=== PATIENT | female | born 2000 | race Hispanic/Latino ===

== ENCOUNTER 2025-03-10 20:55 | Emergency (ER) | payer OTHER ==
--- OUTSIDE RECORDS SUMMARY | 2025-03-10 21:01 | XMS REPORT | Continuity of Care Document ---
Author Name Unknown Address [address] [facility] [place] [address] [facility] Address [address] [facility] [address] [place] [address] Care Team Providers Care Doper Operator Name Role Phone Ratna Bennett Primary Care Physician [phone] ANGELINA OSWALD Attending Clinician Unavailable BRIAN MICHELE Attending Clinician Unavailab Brian Wilder NP Attending Clinician [phone] Unknown, Attending Attending Clinician Unavailab PARKER Jang Attending Clinician Unavailable Parker Yeh Attending Clinician Unknown, Attending Attending Clinician Unavailab Shiv Akins MD Attending Clinician SHIV FRIAS Attending Clinician Unavail able Doctor Unassigned, Ben Avon Attending Clinician Lito Bishop DO Attending Clinician Patricia Barrientos Attending Clinician + PATRICIA BOOTHE Attending Clinician Unavail able Brian Becerril Attending Clinician [phone] BRIAN KIM Attending Clinician Unavailable Payers Payer Name Policy Type Policy Number Effective Date Expirati on Date Source CIGAMILCAR II [id number] 2024 00:00:00 FORMERLY [facility] [id number] 2024 00:00:00 [facility] [id number] 2015 00:00:00 Problems Condition Name Condition Details Condition Category Status Onset Date Resolution Date Last Treatment Date Treating Clinician Comments Source Nexplanon insertion Nexplanon insertion Disease Active 10-15 00:00: 00 [facility] Nexplanon removal Nexplanon removal Disease Active 10-15 00:00: 00 [facility] Well woman exam Well woman exam Disease Active 10-01 00:00: 00 [facility] Morbid obesity, unspecifie d obesity type Morbid obesity, unspecifie d obesity type Disease Active 10-01 00:00: 00 [facility] Tobacco use disorder Tobacco use disorder Disease Active 10-01 00:00: 00 [facility] Nexplanon in place Nexplanon in place Disease Active 10-01 00:00: 00 [facility] Acanthosis nigricans, acquired Acanthosis nigricans, acquired Disease Active 08-16 00:00: 00 [facility] BMI (body mass index), pediatric, 95-99% for age BMI (body mass index), pediatric, 95-99% for age Disease Active 08-16 00:00: 00 [facility] Allergies, Adverse Reactions, Alerts Allergy Name Allergy Type Status Severity Reaction(s) Onset Date Inactive Date Treating Clinician Comments Source NO KNOWN ALLERGIE S Drug Class Active [facility] Social History Social Habit Start Date Stop Date Quantity Comments Source [facility] Alcoholic beverage intake 2024-10-23 00:00:00 2024-10-23 00:00:00 0 /d [facility] Tobacco use and exposure 2023-12-14 00:00:00 2023-12-14 00:00:00 Smokeless tobacco non-user [facility] Exposure to SARS-CoV-2 (event) 2022-09-28 00:00:00 2022-10-08 11:23:00 Not sure [facility] History of Social function 2022-10-08 00:00:00 2022-10-08 00:00:00 [facility] Alcohol intake 2022-10-08 00:00:00 2022-10-08 00:00:00 0 /d [facility] Tobacco Comment 2022-10-08 00:00:00 2022-10-08 00:00:00 e-cig , < 5 min / day. [facility] History of tobacco use 2016-08-28 00:00:00 2016-08-28 00:00:00 Cigarette Smoker [facility] Sex assigned at 2000 00:00:00 2000 00:00:00 [facility] Smoking Status Start Date Stop Date Source Smokes tobacco daily 2023-12-14 00:00:00 [facility] Medications Ordered Medication Name Filled Medication Name Start Date Stop Date Current Medication? Ordering Clinician Indication Dosage Frequency Signature (SIG) Comments Components Source polymyxin B sulf-trimet hoprim 10,000 unit- 1 mg/mL ophthalmic drops 10-23 00:00: 00 10-31 04:59 :00 No [id number] 1[drp] Place 1 Drop in left eye every 4 (four) hours for 7 days. [facility] metronidazo le 500 mg tablet 05 00:00: 00 Yes 1mg Jermaine F Ron albuterol 90 mcg/actuati on inhaler 12-13 00:00: 00 10-23 00:00 :00 No [id number] 2{puff} Inhale 2 Puffs every 6 (six) hours as needed for Wheezing or Shortness of Breath. [facility] nirmatrelvi r-ritonavir (PAXLOVID) 150-100 mg tablet 12-13 00:00: 00 10-23 00:00 :00 No [id number] 2{tbl} Take 2 tablets by mouth in the morning and 2 tablets in the evening. [facility] metroNIDAZO LE 500 mg tablet -16 00:00: 00 10-18 04:59 :00 No [id number] 500mg Take 1 tablet by mouth every 12 (twelve) hours for 7 days. [facility] ibuprofen 800 mg tablet 10-08 00:00: 00 10-23 04:59 :00 No [id number] 800mg Take 1 tablet by mouth in the morning and 1 tablet in the evening. Take with meals. Do all this for 14 days. [facility]OGE[facility]RE L (NEXPLANON SDRM) 08-15 22:41: 35 08-15 00:00 :00 No by Subdermal route. [facility] ETONOGESTRE L (NEXPLANON SDRM) 2019-07 21:31: 41 Yes by Subdermal route. [facility] ETONOGESTRE L (NEXPLANON SDRM) 12-17 19:07: 18 Yes by Subdermal route. [facility] No known medications No Un concepcion [facility] No known medications No Un concepcion [facility] Immunizations Ordered Immunization Name Filled Immunization Name Date Status Comments Source Hep B, Adol or Pedi Dosage 2023-12-14 13:40:00 Completed [facility] HEPATITIS A 2023-12-14 13:40:00 Completed [facility] Varicella (varivax)(chicken pox) 2023-12-14 13:40:00 Completed [facility] Meningococcal Polysaccharide (groups A, C, Y and W-135) conjugate vaccine (MCV4P) 2023-12-14 13:40:00 Completed [facility] TDAP 2023-12-14 13:40:00 Completed [facility] Meningococcal Oligosaccharide (groups A, C, Y and W-135) conjugate vaccine (MCV4O) 2023-12-14 13:40:00 Completed [facility] HPV 2023-12-14 13:40:00 Completed [facility] HPV9 2023-12-14 13:40:00 Completed [facility] HPV9 2015-08-16 00:00:00 Completed [facility] HPV9 2015-08-16 00:00:00 Completed [facility] HPV9 2015-08-16 00:00:00 Completed [facility] HPV9 2015-08-16 00:00:00 Completed [facility] HPV9 2015-08-16 00:00:00 Completed [facility] HPV9 2015-08-16 00:00:00 Completed [facility] HPV9 2015-08-16 00:00:00 Completed [facility] HPV9 2015-08-16 00:00:00 Completed [facility] HPV9 2015-08-16 00:00:00 Completed HPV9 2015-08-16 00:00:00 Completed [facility] HPV9 2015-04-06 00:00:00 Completed [facility] HPV9 2015-04-06 00:00:00 Completed [facility] HPV9 2015-04-06 00:00:00 Completed [facility] HPV9 2015-04-06 00:00:00 Completed [facility] HPV9 2015-04-06 00:00:00 Completed [facility] HPV9 2015-04-06 00:00:00 Completed [facility] HPV9 2015-04-06 00:00:00 Completed [facility] HPV9 2015-04-06 00:00:00 Completed [facility] HPV9 2015-04-06 00:00:00 Completed [facility] HPV9 2015-04-06 00:00:00 Completed [facility] Meningococcal Oligosaccharide (groups A, C, Y and W-135) conjugate vaccine (MCV4O) 2014-11-02 00:00:00 Completed [facility] HPV 2014-11-02 00:00:00 Completed [facility] Meningococcal Oligosaccharide (groups A, C, Y and W-135) conjugate vaccine (MCV4O) 2014-11-02 00:00:00 Completed [facility] HPV 2014-11-02 00:00:00 Completed [facility] Meningococcal Oligosaccharide (groups A, C, Y and W-135) conjugate vaccine (MCV4O) 2014-11-02 00:00:00 Completed [facility] HPV 2014-11-02 00:00:00 Completed [facility] Meningococcal Oligosaccharide (groups A, C, Y and W-135) conjugate vaccine (MCV4O) 2014-11-02 00:00:00 Completed [facility] HPV 2014-11-02 00:00:00 Completed [facility] Meningococcal Oligosaccharide (groups A, C, Y and W-135) conjugate vaccine (MCV4O) 2014-11-02 00:00:00 Completed [facility] HPV 2014-11-02 00:00:00 Completed [facility] Meningococcal Oligosaccharide (groups A, C, Y and W-135) conjugate vaccine (MCV4O) 2014-11-02 00:00:00 Completed [facility] HPV 2014-11-02 00:00:00 Completed [facility] Meningococcal Oligosaccharide (groups A, C, Y and W-135) conjugate vaccine (MCV4O) 2014-11-02 00:00:00 Completed [facility] Meningococcal Oligosaccharide (groups A, C, Y and W-135) conjugate vaccine (MCV4O) 2014-11-02 00:00:00 Completed [facility] HPV 2014-11-02 00:00:00 Completed [facility] HPV 2014-11-02 00:00:00 Completed [facility] Meningococcal Oligosaccharide (groups A, C, Y and W-135) conjugate vaccine (MCV4O) 2014-11-02 00:00:00 Completed [facility] HPV 2014-11-02 00:00:00 Completed Meningococcal Oligosaccharide (groups A, C, Y and W-135) conjugate vaccine (MCV4O) 2014-11-02 00:00:00 Completed [facility] HPV 2014-11-02 00:00:00 Completed [facility] Meningococcal Polysaccharide (groups A, C, Y and W-135) conjugate vaccine (MCV4P) 2010-12-20 00:00:00 Completed [facility] TDAP 2010-12-20 00:00:00 Completed [facility] Meningococcal Polysaccharide (groups A, C, Y and W-135) conjugate vaccine (MCV4P) 2010-12-20 00:00:00 Completed [facility] TDAP 2010-12-20 00:00:00 Completed [facility] Meningococcal Polysaccharide (groups A, C, Y and W-135) conjugate vaccine (MCV4P) 2010-12-20 00:00:00 Completed [facility] TDAP 2010-12-20 00:00:00 Completed [facility] Meningococcal Polysaccharide (groups A, C, Y and W-135) conjugate vaccine (MCV4P) 2010-12-20 00:00:00 Completed [facility] TDAP 2010-12-20 00:00:00 Completed [facility] Meningococcal Polysaccharide (groups A, C, Y and W-135) conjugate vaccine (MCV4P) 2010-12-20 00:00:00 Completed [facility] TDAP 2010-12-20 00:00:00 Completed [facility] Meningococcal Polysaccharide (groups A, C, Y and W-135) conjugate vaccine (MCV4P) 2010-12-20 00:00:00 Completed [facility] TDAP 2010-12-20 00:00:00 Completed [facility] Meningococcal Polysaccharide (groups A, C, Y and W-135) conjugate vaccine (MCV4P) 2010-12-20 00:00:00 Completed [facility] TDAP 2010-12-20 00:00:00 Completed [facility] Meningococcal Polysaccharide (groups A, C, Y and W-135) conjugate vaccine (MCV4P) 2010-12-20 00:00:00 Completed [facility] TDAP 2010-12-20 00:00:00 Completed [facility] Meningococcal Polysaccharide (groups A, C, Y and W-135) conjugate vaccine (MCV4P) 2010-12-20 00:00:00 Completed [facility] TDAP 2010-12-20 00:00:00 Completed Meningococcal Polysaccharide (groups A, C, Y and W-135) conjugate vaccine (MCV4P) 2010-12-20 00:00:00 Completed [facility] TDAP 2010-12-20 00:00:00 Completed [facility] HEPATITIS A 2008-08-10 00:00:00 Completed [facility] Varicella (varivax)(chicken pox) 2008-08-10 00:00:00 Completed [facility] HEPATITIS A 2008-08-10 00:00:00 Completed [facility] Varicella (varivax)(chicken pox) 2008-08-10 00:00:00 Completed [facility] HEPATITIS A 2008-08-10 00:00:00 Completed [facility] Varicella (varivax)(chicken pox) 2008-08-10 00:00:00 Completed [facility] HEPATITIS A 2008-08-10 00:00:00 Completed [facility] Varicella (varivax)(chicken pox) 2008-08-10 00:00:00 Completed [facility] HEPATITIS A 2008-08-10 00:00:00 Completed [facility] Varicella (varivax)(chicken pox) 2008-08-10 00:00:00 Completed [facility] HEPATITIS A 2008-08-10 00:00:00 Completed [facility] HEPATITIS A 2008-08-10 00:00:00 Completed [facility] Varicella (varivax)(chicken pox) 2008-08-10 00:00:00 Completed [facility] Varicella (varivax)(chicken pox) 2008-08-10 00:00:00 Completed [facility] HEPATITIS A 2008-08-10 00:00:00 Completed [facility] Varicella (varivax)(chicken pox) 2008-08-10 00:00:00 Completed [facility] HEPATITIS A 2008-08-10 00:00:00 Completed Varicella (varivax)(chicken pox) 2008-08-10 00:00:00 Completed HEPATITIS A 2008-08-10 00:00:00 Completed [facility] Varicella (varivax)(chicken pox) 2008-08-10 00:00:00 Completed [facility] HEPATITIS A 2006-12-08 00:00:00 Completed [facility] HEPATITIS A 2006-12-08 00:00:00 Completed [facility] HEPATITIS A 2006-12-08 00:00:00 Completed [facility] HEPATITIS A 2006-12-08 00:00:00 Completed [facility] HEPATITIS A 2006-12-08 00:00:00 Completed [facility] HEPATITIS A 2006-12-08 00:00:00 Completed [facility] HEPATITIS A 2006-12-08 00:00:00 Completed [facility] HEPATITIS A 2006-12-08 00:00:00 Completed [facility] HEPATITIS A 2006-12-08 00:00:00 Completed HEPATITIS A 2006-12-08 00:00:00 Completed [facility] Hep B, Adol or Pedi Dosage 2003-05-16 00:00:00 Completed [facility] Hep B, Adol or Pedi Dosage 2003-05-16 00:00:00 Completed [facility] Hep B, Adol or Pedi Dosage 2003-05-16 00:00:00 Completed [facility] Hep B, Adol or Pedi Dosage 2003-05-16 00:00:00 Completed [facility] Hep B, Adol or Pedi Dosage 2003-05-16 00:00:00 Completed [facility] Hep B, Adol or Pedi Dosage 2003-05-16 00:00:00 Completed [facility] Hep B, Adol or Pedi Dosage 2003-03-10 00:00:00 Completed [facility] Hep B, Adol or Pedi Dosage 2003-03-10 00:00:00 Completed [facility] Hep B, Adol or Pedi Dosage 2003-03-10 00:00:00 Completed [facility] Hep B, Adol or Pedi Dosage 2003-03-10 00:00:00 Completed [facility] Hep B, Adol or Pedi Dosage 2003-03-10 00:00:00 Completed [facility] Hep B, Adol or Pedi Dosage 2003-03-10 00:00:00 Completed [facility] DTAP 2003-01-20 00:00:00 Completed [facility] MMR 2003-01-20 00:00:00 Completed [facility] Polio (IPV/OPV) 2003-01-20 00:00:00 Completed [facility] DTAP 2003-01-20 00:00:00 Completed [facility] MMR 2003-01-20 00:00:00 Completed [facility] Polio (IPV/OPV) 2003-01-20 00:00:00 Completed [facility] DTAP 2003-01-20 00:00:00 Completed [facility] MMR 2003-01-20 00:00:00 Completed [facility] Polio (IPV/OPV) 2003-01-20 00:00:00 Completed [facility] DTAP 2003-01-20 00:00:00 Completed [facility] MMR 2003-01-20 00:00:00 Completed [facility] Polio (IPV/OPV) 2003-01-20 00:00:00 Completed [facility] DTAP 2003-01-20 00:00:00 Completed [facility] MMR 2003-01-20 00:00:00 Completed [facility] Polio (IPV/OPV) 2003-01-20 00:00:00 Completed [facility] DTAP 2003-01-20 00:00:00 Completed [facility] MMR 2003-01-20 00:00:00 Completed [facility] Polio (IPV/OPV) 2003-01-20 00:00:00 Completed [facility] DTAP 1999-10-03 00:00:00 Completed [facility] HIB 4 Dose Schedule 1999-10-03 00:00:00 Completed [facility] DTAP 1999-10-03 00:00:00 Completed [facility] HIB 4 Dose Schedule 1999-10-03 00:00:00 Completed [facility] DTAP 1999-10-03 00:00:00 Completed [facility] HIB 4 Dose Schedule 1999-10-03 00:00:00 Completed [facility] DTAP 1999-10-03 00:00:00 Completed [facility] HIB 4 Dose Schedule 1999-10-03 00:00:00 Completed [facility] DTAP 1999-10-03 00:00:00 Completed [facility] HIB 4 Dose Schedule 1999-10-03 00:00:00 Completed [facility] DTAP 1999-10-03 00:00:00 Completed [facility] HIB 4 Dose Schedule 1999-10-03 00:00:00 Completed [facility] Varicella (varivax)(chicken pox) 1999-06-15 00:00:00 Completed [facility] HIB 4 Dose Schedule 1999-06-15 00:00:00 Completed [facility] MMR 1999-06-15 00:00:00 Completed [facility] HIB 4 Dose Schedule 1999-06-15 00:00:00 Completed [facility] MMR 1999-06-15 00:00:00 Completed [facility] Varicella (varivax)(chicken pox) 1999-06-15 00:00:00 Completed [facility] HIB 4 Dose Schedule 1999-06-15 00:00:00 Completed [facility] HIB 4 Dose Schedule 1999-06-15 00:00:00 Completed [facility] MMR 1999-06-15 00:00:00 Completed [facility] Varicella (varivax)(chicken pox) 1999-06-15 00:00:00 Completed [facility] MMR 1999-06-15 00:00:00 Completed [facility] HIB 4 Dose Schedule 1999-06-15 00:00:00 Completed [facility] MMR 1999-06-15 00:00:00 Completed [facility] Varicella (varivax)(chicken pox) 1999-06-15 00:00:00 Completed [facility] Varicella (varivax)(chicken pox) 1999-06-15 00:00:00 Completed [facility] HIB 4 Dose Schedule 1999-06-15 00:00:00 Completed [facility] MMR 1999-06-15 00:00:00 Completed [facility] Varicella (varivax)(chicken pox) 1999-06-15 00:00:00 Completed [facility] DTAP 1999-01-05 00:00:00 Completed [facility] Hep B, Adol or Pedi Dosage 1999-01-05 00:00:00 Completed [facility] HIB 4 Dose Schedule 1999-01-05 00:00:00 Completed [facility] Polio (IPV/OPV) 1999-01-05 00:00:00 Completed [facility] DTAP 1999-01-05 00:00:00 Completed [facility] Hep B, Adol or Pedi Dosage 1999-01-05 00:00:00 Completed [facility] HIB 4 Dose Schedule 1999-01-05 00:00:00 Completed [facility] Polio (IPV/OPV) 1999-01-05 00:00:00 Completed [facility] DTAP 1999-01-05 00:00:00 Completed [facility] Hep B, Adol or Pedi Dosage 1999-01-05 00:00:00 Completed [facility] DTAP 1999-01-05 00:00:00 Completed [facility] Hep B, Adol or Pedi Dosage 1999-01-05 00:00:00 Completed [facility] HIB 4 Dose Schedule 1999-01-05 00:00:00 Completed [facility] HIB 4 Dose Schedule 1999-01-05 00:00:00 Completed [facility] Polio (IPV/OPV) 1999-01-05 00:00:00 Completed [facility] DTAP 1999-01-05 00:00:00 Completed [facility] Hep B, Adol or Pedi Dosage 1999-01-05 00:00:00 Completed [facility] HIB 4 Dose Schedule 1999-01-05 00:00:00 Completed [facility] Polio (IPV/OPV) 1999-01-05 00:00:00 Completed [facility] Polio (IPV/OPV) 1999-01-05 00:00:00 Completed [facility] DTAP 1999-01-05 00:00:00 Completed [facility] Hep B, Adol or Pedi Dosage 1999-01-05 00:00:00 Completed [facility] HIB 4 Dose Schedule 1999-01-05 00:00:00 Completed [facility] Polio (IPV/OPV) 1999-01-05 00:00:00 Completed [facility] DTAP 1998 00:00:00 Completed [facility] HIB 4 Dose Schedule 1998 00:00:00 Completed [facility] Polio (IPV/OPV) 1998 00:00:00 Completed [facility] DTAP 1998 00:00:00 Completed [facility] HIB 4 Dose Schedule 1998 00:00:00 Completed [facility] Polio (IPV/OPV) 1998 00:00:00 Completed [facility] DTAP 1998 00:00:00 Completed [facility] DTAP 1998 00:00:00 Completed [facility] HIB 4 Dose Schedule 1998 00:00:00 Completed [facility] Polio (IPV/OPV) 1998 00:00:00 Completed [facility] HIB 4 Dose Schedule 1998 00:00:00 Completed [facility] Polio (IPV/OPV) 1998 00:00:00 Completed [facility] DTAP 1998 00:00:00 Completed [facility] HIB 4 Dose Schedule 1998 00:00:00 Completed [facility] Polio (IPV/OPV) 1998 00:00:00 Completed [facility] DTAP 1998 00:00:00 Completed [facility] HIB 4 Dose Schedule 1998 00:00:00 Completed [facility] Polio (IPV/OPV) 1998 00:00:00 Completed [facility] Hep B, Adol or Pedi Dosage 1998 00:00:00 Completed [facility] Hep B, Adol or Pedi Dosage 1998 00:00:00 Completed [facility] Hep B, Adol or Pedi Dosage 1998 00:00:00 Completed [facility] Hep B, Adol or Pedi Dosage 1998 00:00:00 Completed [facility] Hep B, Adol or Pedi Dosage 1998 00:00:00 Completed [facility] Hep B, Adol or Pedi Dosage 1998 00:00:00 Completed [facility] Hep B, Adol or Pedi Dosage 1998 00:00:00 Completed [facility] Hep B, Adol or Pedi Dosage 1998 00:00:00 [facility]pleted [facility] [facility] Hep B, Adol or Pedi Dosage 1998 00:00:00 Completed [facility] Hep B, Adol or Pedi Dosage 1998 00:00:00 Completed [facility] Vital Signs Vital Name Observation Time Observation Value Comments S jermaine Systolic blood pressure 2024-10-23 14:36:00 120 mm[Hg] [facility] Diastolic blood pressure 2024-10-23 14:36:00 79 mm[Hg] [facility] Heart rate 2024-10-23 14:36:00 116 /min Neela [facility] Body temperature 2024-10-23 14:36:00 36.67 Bonnie [facility] Respiratory rate 2024-10-23 14:36:00 24 /min [facility] Body height 2024-10-23 14:36:00 144.8 cm [facility] Body weight 2024-10-23 14:36:00 101.833 kg [facility] BMI 2024-10-23 14:36:00 48.58 kg/m2 [facility] Oxygen saturation in Arterial blood by Pulse oximetry 2024-10-23 14:36:00 98 /min [facility] Systolic blood pressure 2023-12-14 18:54:00 117 mm[Hg] [facility] Diastolic blood pressure 2023-12-14 18:54:00 81 mm[Hg] [facility] Heart rate 2023-12-14 18:54:00 104 /min Unive [facility] Body temperature 2023-12-14 18:54:00 37.61 Bonnie [facility] Respiratory rate 2023-12-14 18:54:00 14 /min [facility] Body height 2023-12-14 18:54:00 144.8 cm [facility] Body weight 2023-12-14 18:54:00 98.294 kg [facility] BMI 2023-12-14 18:54:00 46.89 kg/m2 [facility] Oxygen saturation in Arterial blood by Pulse oximetry 2023-12-14 18:54:00 97 /min [facility] Systolic blood pressure 2022-10-08 16:24:00 113 mm[Hg] [facility] Diastolic blood pressure 2022-10-08 16:24:00 80 mm[Hg] [facility] Heart rate 2022-10-08 16:24:00 98 /min [facility] Body temperature 2022-10-08 16:24:00 36.5 Bonnie [facility] Respiratory rate 2022-10-08 16:24:00 16 /min [facility] Body height 2022-10-08 16:24:00 144.8 cm [facility] Body weight 2022-10-08 16:24:00 96.163 kg [facility] BMI 2022-10-08 16:24:00 45.88 kg/m2 [facility] Oxygen saturation in Arterial blood by Pulse oximetry 2022-10-08 16:24:00 99 /min [facility] Systolic blood pressure 2020-08-15 21:31:00 115 mm[Hg] [facility] Diastolic blood pressure 2020-08-15 21:31:00 72 mm[Hg] [facility] Heart rate 2020-08-15 21:31:00 89 /min [facility] Body temperature 2020-08-15 21:31:00 36.94 Bonnie [facility] Respiratory rate 2020-08-15 21:31:00 18 /min [facility] Body height 2020-08-15 21:31:00 144.8 cm [facility] Body weight 2020-08-15 21:31:00 89.721 kg [facility] BMI 2020-08-15 21:31:00 42.80 kg/m2 [facility] Systolic blood pressure 2020-07-05 21:30:00 117 mm[Hg] [facility] Diastolic blood pressure 2020-07-05 21:30:00 77 mm[Hg] [facility] Heart rate 2020-07-05 21:30:00 83 /min [facility] Body temperature 2020-07-05 21:30:00 36.67 Bonnie [facility] Respiratory rate 2020-07-05 21:30:00 18 /min [facility] Body height 2020-07-05 21:30:00 144.8 cm [facility] Body weight 2020-07-05 21:30:00 90.436 kg [facility] BMI 2020-07-05 21:30:00 43.14 kg/m2 [facility] BP Systolic 2024-12-01 14:03:00 127 mm[Hg] Kobe Velasquez BP Diastolic 2024-12-01 14:03:00 81 mm[Hg] Ulises Velasquez Weight Measured 2024-12-01 14:03:00 225.80 pounds Jermaine Velasquez Height Measured 2024-12-01 14:03:00 60.00 inches Jermaine F Ron Body Temperature 2024-12-01 14:03:00 98.00 degrees Jermaine F Ron Heart Rate 2024-12-01 14:03:00 117.00 /min Step hen F Ron Respiratory Rate 2024-12-01 14:03:00 20.00 /min Jermaine F Ron BP Systolic 2024-09-04 11:47:00 127 mm[Hg] Step hen F Ron BP Diastolic 2024-09-04 11:47:00 84 mm[Hg] Ulises phen F Ron Weight Measured 2024-09-04 11:47:00 226.60 pounds Jermaine F Ron Height Measured 2024-09-04 11:47:00 60.00 inches Jermaine F Ron Body Temperature 2024-09-04 11:47:00 98.70 degrees Jermaine F Ron Heart Rate 2024-09-04 11:47:00 102.00 /min Step hen F Ron Respiratory Rate 2024-09-04 11:47:00 Jermaine F Ron Respiratory Rate 2024-09-01 09:36:00 18.00 /min Jermaine F Ron BP Systolic 2024-09-01 09:36:00 120 mm[Hg] Step hen F Ron BP Diastolic 2024-09-01 09:36:00 81 mm[Hg] Ulises phen F Ron Weight Measured 2024-09-01 09:36:00 225.00 pounds Jermaine F Ron Height Measured 2024-09-01 09:36:00 60.00 inches Jermaine F Ron Body Temperature 2024-09-01 09:36:00 98.60 degrees Jermaine F Ron Heart Rate 2024-09-01 09:36:00 87.00 /min Virginie en F Ron BP Systolic 2024-08-27 16:36:00 115 mm[Hg] Step hen F Ron BP Diastolic 2024-08-27 16:36:00 74 mm[Hg] Ulises phen F Ron Weight Measured 2024-08-27 16:36:00 228.00 pounds Jermaine F Ron Height Measured 2024-08-27 16:36:00 60.00 inches Jermaine F Ron Body Temperature 2024-08-27 16:36:00 98.50 degrees Jermaine F Ron Heart Rate 2024-08-27 16:36:00 100.00 /min Step hen F Ron Respiratory Rate 2024-08-27 16:36:00 16.00 /min Jermaine Velasquez BP Systolic 2024-08-13 17:07:00 110 mm[Hg] Step zbigniew Velasquez BP Diastolic 2024-08-13 17:07:00 73 mm[Hg] Ulises Velasquez Weight Measured 2024-08-13 17:07:00 Jermaine Velasquez Height Measured 2024-08-13 17:07:00 60.00 inches Jermaine Velasquez Body Temperature 2024-08-13 17:07:00 97.90 degrees Jermaine Velasquez Heart Rate 2024-08-13 17:07:00 66.00 /min Virginie en Saturnino Velasquez Respiratory Rate 2024-08-13 17:07:00 Jermaine Velasquez Procedures Procedure Date / Time Performed Performing Clinicia n Source POCT SARS-COV-2 ANTIGEN (BINAX NOW) 2023-12-14 19:00:00 Amelie Wilkinson [facility] ASSIGNMENT OF BENEFITS 2022-10-08 16:13:01 Doctimothy r Unassigned, [place] [facility] POCT TEST 2020-08-15 21:33:00 Timothy Boothe [facility] DISCLOSURE AND CONSENT, MEDICAL AND SURGICAL PROCEDURES 2020-08-15 06:01:00 Doctor Unassigned, [place] [facility] ASSIGNMENT OF BENEFITS 2020-07-05 20:43:59 Clarisse r Unassigned, [place] [facility] Encounters Start Date/Time End Date/Time Encounter Type Admission Type Attending [facility] Care Facility Care Department Encounter ID Source 2024-12-02 11:00:00 2024-12-02 11:00:00 Outpatient ANGELINA BARBA [facility] [id number] [facility] 2024-12-01 13:59:50 2024-12-01 13:59:50 Outpatient [facility] [id number] Jermaine Velasquez 2024-12-01 00:00:00 2024-12-01 00:00:00 Outpatient Visit [facility] [id number] Jermaine Velasquez 2024-10-23 09:30:00 2024-10-23 10:02:07 Outpatient R BRIAN MICHELE [facility] [id number] [facility] 2024-10-23 09:30:00 2024-10-23 10:02:07 Urgent Care Brian Michele Brandie Unknown, Attending [facility] 1.840.114 350.1.13.10 4.2.7.2.686 [id number] [facility] 2024-09-13 12:55:09 2024-09-13 12:55:09 Outpatient [facility] [id number] Jermaine Matamoros Ron 2024-09-04 11:36:57 2024-09-04 11:36:57 Outpatient [facility] [id number] Jermaine Matamoros Ron 2024-09-04 00:00:00 2024-09-04 00:00:00 Outpatient Visit [facility] [id number] Jermaine Matamoros Ron 2024-09-01 10:31:44 2024-09-01 10:31:44 Outpatient [facility] 5 Jermaine Matamoros Armstrong 2024-08-27 00:00:00 2024-08-27 00:00:00 Outpatient Visit [facility] [id number] Jeramine Velasquez 2023-12-14 13:40:00 2023-12-14 14:11:34 Outpatient R PARKER VILLANUEVA [facility] [id number] [facility] 2023-12-14 13:40:00 2023-12-14 14:11:34 Urgent Care Parker Villanueva Unknown, [facility] 1.840.114 350.1.13.10 4.2.7.2.686 [id number] [facility] 2022-10-10 00:00:00 2022-10-10 00:00:00 Telephone [facility] 1.2.840.114 350.1.13.10 4.2.7.2.686 [id number] [facility] 2022-10-08 11:00:00 2022-10-08 11:51:12 Outpatient R SHIV FRIAS [facility] [id number] [facility] 2022-10-08 11:00:00 2022-10-08 11:15:00 Office Visit Shiv Frias [facility] 1.2840.114 350.1.13.10 4.2.7.2.686 [id number] [facility] 2022-10-08 00:00:00 2022-10-08 00:00:00 Orders Only Doctor Unassigned, [place] [facility] 1.840.114 350.1.13.10 4.2.7.2.686 [id number] [facility] 2020-10-17 00:00:00 2020-10-17 00:00:00 Patient Outreach Lito Mccartney [facility] 1.2.114 350.1.13.10 4.2.7.2.686 [id number] [facility] 2020-08-15 14:42:15 2020-08-15 16:02:35 Office Visit Patricia Boothe [facility] 1.2.114 350.1.13.10 4.2.7.2.686 [id number] [facility] 2020-08-15 14:45:00 2020-08-15 14:45:00 Outpatient R PATRICIA BOOTHE [facility] [id number] [facility] 2020-08-15 00:00:00 2020-08-15 00:00:00 Orders Only Doctor Unassigned, [place] [facility] 1.20.114 350.1.13.10 4.2.7.2.686 [id number] [facility] 2020-07-05 14:47:30 2020-07-05 16:25:16 Office Visit Brian Kim [facility] 1.2.840.114 350.1.13.10 4.2.7.2.686 [id number] [facility] 2020-07-05 14:45:00 2020-07-05 14:45:00 Outpatient R BRIAN KIM [facility] [id number] [facility] 2020-07-05 00:00:00 2020-07-05 00:00:00 Orders Only Doctor Unassigned, [place] [facility] 1.2.840.114 350.1.13.10 4.2.7.2.686 [id number] [facility] 2020-06-14 00:00:00 2020-06-14 00:00:00 Telephone Patricia Boothe [facility] 1.2.840.114 350.1.13.10 4.2.7.2.686 [id number] [facility] 2020-06-06 08:45:00 2020-06-06 08:45:00 Outpatient R PATRICIA BOOTHE [facility] [id number] [facility] Results Test Description Test Time Test Comments Results Result Co mments Source GLUCOSE, 1 HR, GESTATIONAL SCREEN, 50 GM [id number] 00:00:00* Test Item Value Reference Range Interpretation Comme nts GLUCOSE 1 HR POST 50 GM (agustina t code = 2005) 97 MG/DL Jermaine VelasquezGLUCOSE, 1 HR, GESTATIONAL SCREEN, 50 GM [id number] 00:00:00 * Test Item Value Reference Range Interpretation Comme nts GLUCOSE 1 HR POST 50 GM (agustina t code = 2005) 97 MG/DL Jermaine VelasquezPAP TEST, THINPREP, [id number] 17:53:42* Test Item Value Reference Range Interpretation Comme nts SOURCE: (test code = 8001) Cervical SLIDES: (test code = 8011) 1 LMP: (test code = 8021) 07/04/2024 SPECIMEN ADEQUACY: (test code = 32200) (NOTE) Satisfactory for evaluation. Endocervical cells/transformation zone component not identified. INTERPRETATION: (test code = 32958) NILM/NO EPITH. ABNORMALITY;SEE BELOW --- - NEGATIVE FOR INTRAEPITHELIAL LESION OR MALIGNANCY (NILM) ---- OTHER COMMENTS: (test code = 8081) (NOTE) Shift in lucretia suggestive of bacterial vaginosis. MEDICAL OFFICER : (test code = 8101) RAMSES Andersen(ASCP) LOCATION: (test code = 85659) (NOTE) Specimens proces sed and interpreted at [facility], [address] [place] [address], , CLIA: [id number] CPT: (test code = 8140) 87508 UNLESS OTHERWISE INDICATED, COMPUTER AIDED AND MEDICAL OFFICER SCREENING PERFORMED. The Pap test is a screening test with an inherent, but low probability of error. Your patient should be reminded to consult you immediately if she experiences any suspicious signs or symptoms, regardless of her Pap test result. An alternate report format containing images or consolidated prior Pap history is available as applicable. HPV HIGH RISK WITH GENOTYPE, [id number] 17:38:33* Test Item Value Reference Range Interpretation Comme nts HPV HIGH RISK INTERP (test code = 01747) NEGATIVE NEGATIVE HPV 16 (test code = 52979) NEGATIVE HPV 18 (test code = 67675) NEGATIVE HPV, HR, OTHER GENOTYPES (test code = 54560) NEGATIVE Testing methodol ogy is real-time PCR utilizing hydrolysis probes with the Yudelka Rene system. The test individually detects genotypes 16 and 18, as well as the other 12 high risk types (31,33,35,39,45,51,52,56 ,58,59,66,68). The expected result is negative. A negative result does not rule out the presence of HPV not included in the genotype set, a low level of infection or specimen sampling error. VARICELLA ZOSTER [id number] 14:28:27* Test Item Value Reference Range Interpretation Comme nts VARICELLA ZOSTER IgG (test code = 57606) 0.83 S/CO SEE BELOW L PLEASE NOTE: NEW REFERENCE RANGE AND UNITS OF MEASURE. INTERPRETATION UNITS RANGE ----- ----- NEGATIVE S/CO <1.00 POSITIVE S/CO >=1.00 PAP TEST, THINPREP, [id number] 00:00:00* Test Item Value Reference Range Interpretation Comme nts SOURCE: (test code = 8001) Cervical SLIDES: (test code = 8011) 1 LMP: (test code = 8021) 07/04/2024 SPECIMEN ADEQUACY: (test code = 77751) (NOTE) INTERPRETATION: (test code = 30219) NILM/NO EPITH. ABNORMALITY;SEE BELOW OTHER COMMENTS: (test code = 8081) (NOTE) MEDICAL OFFICER: (test code = 8101) RAMSES Andersen(ASCP) LOCATION: (test code = 52128) (NOTE) CPT: (test code = 8140) 71248 Jermaine Matamoros AustinHPV HIGH RISK WITH GENOTYPE, [id number] 00:00:00* Test Item Value Reference Range Interpretation Comme nts HPV HIGH RISK INTERP (test c ode = 93561) NEGATIVE HPV 16 (test code = 70222) NEGATIVE HPV 18 (test code = 72022) NEGATIVE HPV, HR, OTHER GENOTYPES (te st code = 33385) NEGATIVE Jermaine VelasquezVARICELLA ZOSTER [id number] 00:00:00* Test Item Value Reference Range Interpretation Comme nts VARICELLA ZOSTER IgG (test c ode = 28113) 0.83 S/CO Jermaine VelasquezPAP TEST, THINPREP, [id number] 00:00:00* Test Item Value Reference Range Interpretation Comme nts SOURCE: (test code = 8001) Cervical SLIDES: (test code = 8011) 1 LMP: (test code = 8021) 07/04/2024 SPECIMEN ADEQUACY: (test code = 59771) (NOTE) INTERPRETATION: (test code = 45540) NILM/NO EPITH. ABNORMALITY;SEE BELOW OTHER COMMENTS: (test code = 8081) (NOTE) MEDICAL OFFICER: (test code = 8101) RAMSES Andersen(ASCP) LOCATION: (test code = 36299) (NOTE) CPT: (test code = 8140) 20063 Jermaine Matamoros AustinHPV HIGH RISK WITH GENOTYPE, [id number] 00:00:00* Test Item Value Reference Range Interpretation Comme nts HPV HIGH RISK INTERP (test c ode = 74269) NEGATIVE HPV 16 (test code = 70917) NEGATIVE HPV 18 (test code = 76322) NEGATIVE HPV, HR, OTHER GENOTYPES (te st code = 17071) NEGATIVE Jermaine VelasquezVARICELLA ZOSTER [id number] 00:00:00* Test Item Value Reference Range Interpretation Comme nts VARICELLA ZOSTER IgG (test c ode = 37356) 0.83 S/CO Jermaine VelasquezPAP TEST, THINPREP, [id number] 00:00:00* Test Item Value Reference Range Interpretation Comme nts SOURCE: (test code = 8001) Cervical SLIDES: (test code = 8011) 1 LMP: (test code = 8021) 07/04/2024 SPECIMEN ADEQUACY: (test code = 64129) (NOTE) INTERPRETATION: (test code = 16283) NILM/NO EPITH. ABNORMALITY;SEE BELOW OTHER COMMENTS: (test code = 8081) (NOTE) MEDICAL OFFICER: (test code = 8101) RAMSES Andersen(ASCP) LOCATION: (test code = 22008) (NOTE) CPT: (test code = 8140) 49906 Jermaine Matamoros AustinHPV HIGH RISK WITH GENOTYPE, [id number] 00:00:00* Test Item Value Reference Range Interpretation Comme nts HPV HIGH RISK INTERP (test c ode = 90821) NEGATIVE HPV 16 (test code = 23973) NEGATIVE HPV 18 (test code = 39022) NEGATIVE HPV, HR, OTHER GENOTYPES (te st code = 97639) NEGATIVE Jermaine VelasquezVARICELLA ZOSTER [id number] 00:00:00* Test Item Value Reference Range Interpretation Comme jennifer VARICELLA ZOSTER IgG (test c ode = 32242) 0.83 S/CO Jermaine Hernandez, [id number] 14:34:20SPECIMEN NUMBER: [id number] CULTURE, URINE SPECIMEN NUMBER: [id number] SOURCE: URINE REPORT STATUS: FINAL ISOLATE NUMBER 1: IDENTIFICATION: 08/29/2024 <10,000 CFU/ML STREPTOCOCCUS AGALACTIAE (GROUP B) ADDITIONAL OBSERVATIONS: Group B Streptococci (Streptococcus agalactiae) are uniformly susceptible to the recommended (Penicillin G) and alternative (Ampicillin or Cefazolin) treatment regimens; the refore susceptibility testing is not indicated for these agents. Resistance to Clindamycin and Erythromycin has been reported. Note: Urine cultures with low colony counts of Group B Streptococcus orurine cultures with mixed growth containing this organism can be an indication of cervicovaginal colonization. The CDC recommends proactive management of all patients with urine cultures positive for Group B Streptococcus. ADDITIONAL OBSERVATIONS: 08/29/2024 10,000 - 100,000 CFU/ML UROGENITAL LUCRETIA PRESENT NO COMMON PATHOGENSCULTURE, [id number] 00:00:00* Test Item Value Reference Range Interpretation Comme nts CULTURE, URINE (test code = 00265) SPECIMEN NUMBER: [id number] Jermaine VelasquezCULTURE, [id number] 00:00:00* Test Item Value Reference Range Interpretation Comme nts CULTURE, URINE (test code = 22001) SPECIMEN NUMBER: [id number] Jermaine VelasquezCULTURE, [id number] 00:00:00* Test Item Value Reference Range Interpretation Comme nts CULTURE, URINE (test code = 31930) SPECIMEN NUMBER: [id number] Jermaine VelasquezCT/NG, NAAT, [id number] 16:29:13* Test Item Value Reference Range Interpretation Comme nts CHLAMYDIA, NAAT, THINPREP (test code = 99157) NEGATIVE NEGATIVE A negative resul t does not exclude low level infection, specimensampling error, or collection error. Testing is performed with the Yudelka Rene 6800/8800 systems usingreal-time Polymerase Chain Reaction (PCR) method. GONORRHEA, NAAT, THINPREP (test code = 05830) NEGATIVE NEGATIVE A negative resul t does not exclude low level infection, specimensampling error, or collection error. Testing is performed with the Yudelka Rene 6800/8800 systems usingreal-time Polymerase Chain Reaction (PCR) method. UNLESS OTHERWISE INDICATED, ALL TESTING PERFORMED AT [facility] [address] [place] [address] RAIL BENDER: SHADY FUNG M.D. [place] NUMBER [id number] [facility] [place]. [id number] DRUG ABUSE SCREEN 10 REFLEX [id number] 04:24:37* Test Item Value Reference Range Interpretation Comme nts AMPHETAMINES (test code = 3201) NEGATIVE NEGATIVE BARBITURATES (test code = 3202) NEGATIVE NEGATIVE BENZODIAZEPINES (test code = 3203) NEGATIVE NEGATIVE CANNABINOIDS (THC) (test code = 3204) NEGATIVE NEGATIVE COCAINE METABOLITES (test code = 3205) NEGATIVE NEGATIVE OPIATE METABOLITES (test code = 3209) NEGATIVE NEGATIVE OXYCODONE (test code = 72345) NEGATIVE NEGATIVE PHENCYCLIDINE (PCP) (test code = 3210) NEGATIVE NEGATIVE METHADONE (test code = 3207) NEGATIVE NEGATIVE BUPRENORPHINE (test code = 16240) NEGATIVE NEGATIVE SOURCE (test code = 002646) URINE PLEASE NOTE: NEW METHODOLOGY AND SCREENING CUT OFFS SEE BELOW FOR THRESHOLDS AND IMPORTANT METHOD NOTES ANALYTE SCREENING CUTOFF UNITS AMPHETAMINES 500 NG/ML BARBITURATES 200 NG/ML BENZODIAZEPINES 200 NG/ML CANNABINOIDS (THC) 20 NG/ML COCAINE METABOLITES 150 NG/ML OPIATE METABOLITES 300 NG/ML OXYCODONE 100 NG/ML PHENCYCLIDINE (PCP) 25 NG/ML METHADONE 300 NG/ML BUPRENORPHINE 5 NG/ML NOTE: Specimens reported as PRESUMPTIVE POSITIVE have not beensubjected to confirmation testing. NOTE: Screening methodology is KIMS/HEIA. NOTE: Screening methodology is qualitative Enzyme Immunoassay.The screening method may be less sensitive for certain medicationsincluding clonazepam and lorazepam in the benzodiazepine assay andtramadol in the opiate assay, amongst others. Patient compliance,hydration status, timing and dose of medications, drug absorption andspecimen quality may affect screening assay. False positive screenresults may occur due to cross-reactivity. For clinicaldiscrepancies, consider directed testing for specific compounds orcontact the laboratory within specimen stability to forward forconfirmatory testing. This test is specified for medical purposesonly. It is not valid for forensic use. UNLESS OTHERWISE INDICATED, ALL TESTING PERFORMED AT [facility] [address] [place] [address] RAIL BENDER: SHADY FUNG M.D. [place] NUMBER [id number] [facility] [place]. [id number] OBSTETRIC PANEL + [id number] 04:21:17* Test Item Value Reference Range Interpretation Comme nts WBC (test code = 1001) 10.9 K/UL 3.5-11.0 RBC (test code = 1002) 4.81 M/UL 3.80-5.40 HEMOGLOBIN (test code = 1003) 13.3 G/DL 11.5-15.5 HEMATOCRIT (test code = 1004) 40.5 % 34.0-45.0 MCV (test code = 1005) 84.2 fL 80.0-99.0 MCH (test code = 1006) 27.7 PG 25.0-33.0 MCHC (test code = 1007) 32.8 G/DL 31.0-36.0 RDW (test code = 1038) 13.5 % 11.5-15.0 NEUTROPHILS (test code = 1008) 65.1 % LYMPHOCYTES (test code = 1010) 27.3 % MONOCYTES (test code = 1011) 5.5 % EOSINOPHILS (test code = 1012) 1.3 % BASOPHILS (test code = 1013) 0.4 % IMMATURE GRANULOCYTES (test code = 1036) 0.4 % NUCLEATED RBCS (test code = 1065) 0.0 /100 WBC'S See_Comment [Automated me ssage] The system which generated this result transmitted reference range: 0.0. The reference range was not used to interpret this result as normal/abnormal. PLATELET COUNT (test code = 1015) 268 K/UL 130-400 ABSOLUTE NEUTROPHILS (test code = 1066) 7.11 K/UL 1.50-7.50 ABSOLUTE LYMPHOCYTES (test code = 1067) 2.98 K/UL 1.00-4.00 ABSOLUTE MONOCYTES (test code = 1068) 0.60 K/UL 0.20-1.00 ABSOLUTE EOSINOPHILS (test code = 1040) 0.14 K/UL 0.00-0.50 ABSOLUTE BASOPHILS (test code = 1069) 0.04 K/UL 0.00-0.20 ABS IMMATURE GRANULOCYTES (test code = 1020) 0.04 K/UL 0.00-0.10 ABS NUCLEATED RBCS (test code = 23855) 0.00 K/UL 0.00-0.11 BLOOD TYPE AND RH (test code = 3901) O POSITIVE A HISTORICAL RECORD CHECK FOR PREVIOUS RESULTS IS NOT PERFORMED.THESE RESULTS SHOULD BE CORRELATED WITH RESULTS OF PRIOR BLOODTYPING AND ANTIBODY SCREEN STUDIES. ANTIBODY SCREEN (test code = 3902) NEGATIVE NEGATIVE A HISTORICAL RECORD CHECK FOR PREVIOUS RESULTS IS NOT PERFORMED.THESE RESULTS SHOULD BE CORRELATED WITH RESULTS OF PRIOR BLOODTYPING AND ANTIBODY SCREEN STUDIES. RUBELLA ANTIBODY SCREEN (test code = 4600) 103 IU/ML SEE BELOW RUBELLA IgG INTERP (test code = 21317) REACTIVE REACTIVE INTERPRETATI ON UNITS RANGE ----- ----- NON-REACTIVE/NON-IMM UNE IU/ML <10 REACTIVE/IMMUNE IU/ML >=10 HEPATITIS B SURF AG (test code = 2739) NON-REACTIVE NON-REACTIVE RPR (test code = 11453) NON-REACTIVE NON-REACTIVE RPR TITER (test code = 3500) NOT INDIC. TITER NOT INDIC. HIV 1/2 4TH GEN, RFLX CONF (test code = 3514) NON-REACTIVE NON-REACTIVE HEPATITIS C REFLEX [id number] 04:21:17* Test Item Value Reference Range Interpretation Comme nts HEPATITIS C ANTIBODY (test c ode = 4675) NON-REACTIVE NON-REACTIVE OBSTETRIC PANEL + [id number] 00:00:00* Test Item Value Reference Range Interpretation Comme nts WBC (test code = 1001) 10.9 K/UL RBC (test code = 1002) 4.81 M/UL HEMOGLOBIN (test code = 1003) 13.3 G/DL HEMATOCRIT (test code = 1004) 40.5 % MCV (test code = 1005) 84.2 fL MCH (test code = 1006) 27.7 PG MCHC (test code = 1007) 32.8 G/DL RDW (test code = 1038) 13.5 % NEUTROPHILS (test code = 1008) 65.1 % LYMPHOCYTES (test code = 1010) 27.3 % MONOCYTES (test code = 1011) 5.5 % EOSINOPHILS (test code = 1012) 1.3 % BASOPHILS (test code = 1013) 0.4 % IMMATURE GRANULOCYTES (test code = 1036) 0.4 % NUCLEATED RBCS (test code = 1065) 0.0 /100WBC'S PLATELET COUNT (test code = 1015) 268 K/UL ABSOLUTE NEUTROPHILS (test code = 1066) 7.11 K/UL ABSOLUTE LYMPHOCYTES (test code = 1067) 2.98 K/UL ABSOLUTE MONOCYTES (test code = 1068) 0.60 K/UL ABSOLUTE EOSINOPHILS (test code = 1040) 0.14 K/UL ABSOLUTE BASOPHILS (test code = 1069) 0.04 K/UL ABS IMMATURE GRANULOCYTES (test code = 1020) 0.04 K/UL ABS NUCLEATED RBCS (test code = 94551) 0.00 K/UL BLOOD TYPE AND RH (test code = 3901) O POSITIVE ANTIBODY SCREEN (test code = 3902) NEGATIVE RUBELLA ANTIBODY SCREEN (test code = 4600) 103 IU/ML RUBELLA IgG INTERP (test code = 43145) REACTIVE HEPATITIS B SURF AG (test code = 2739) NON-REACTIVE RPR (test code = 89920) NON-REACTIVE RPR TITER (test code = 3500) NOT INDIC. TITER HIV 1/2 4TH GEN, RFLX CONF (test code = 3514) NON-REACTIVE Jermaine Matamoros AustinHEPATITIS C REFLEX [id number] 00:00:00* Test Item Value Reference Range Interpretation Comme nts HEPATITIS C ANTIBODY (test c ode = 4675) NON-REACTIVE Jermaine Matamoros AustinCT/NG, NAAT, [id number] 00:00:00* Test Item Value Reference Range Interpretation Comme nts CHLAMYDIA, NAAT, THINPREP (t est code = 72461) NEGATIVE GONORRHEA, NAAT, THINPREP (t est code = 82987) NEGATIVE PDFE (test code = PDFReport) PDF Jermaine VelasquezDRUG ABUSE SCREEN 10 REFLEX [id number] 00:00:00* Test Item Value Reference Range Interpretation Comme nts AMPHETAMINES (test code = 3201) NEGATIVE BARBITURATES (test code = 3202) NEGATIVE BENZODIAZEPINES (test code = 3203) NEGATIVE CANNABINOIDS (THC) (test cod e = 3204) NEGATIVE COCAINE METABOLITES (test co de = 3205) NEGATIVE OPIATE METABOLITES (test cod e = 3209) NEGATIVE OXYCODONE (test code = 91221) NEGATIVE PHENCYCLIDINE (PCP) (test co de = 3210) NEGATIVE METHADONE (test code = 3207) NEGATIVE BUPRENORPHINE (test code = 77329) NEGATIVE SOURCE (test code = 906981) URINE Jermaine VelasquezOBSTETRIC PANEL + [id number] 00:00:00* Test Item Value Reference Range Interpretation Comme nts WBC (test code = 1001) 10.9 K/UL RBC (test code = 1002) 4.81 M/UL HEMOGLOBIN (test code = 1003) 13.3 G/DL HEMATOCRIT (test code = 1004) 40.5 % MCV (test code = 1005) 84.2 fL MCH (test code = 1006) 27.7 PG MCHC (test code = 1007) 32.8 G/DL RDW (test code = 1038) 13.5 % NEUTROPHILS (test code = 1008) 65.1 % LYMPHOCYTES (test code = 1010) 27.3 % MONOCYTES (test code = 1011) 5.5 % EOSINOPHILS (test code = 1012) 1.3 % BASOPHILS (test code = 1013) 0.4 % IMMATURE GRANULOCYTES (test code = 1036) 0.4 % NUCLEATED RBCS (test code = 1065) 0.0 /100WBC'S PLATELET COUNT (test code = 1015) 268 K/UL ABSOLUTE NEUTROPHILS (test code = 1066) 7.11 K/UL ABSOLUTE LYMPHOCYTES (test code = 1067) 2.98 K/UL ABSOLUTE MONOCYTES (test code = 1068) 0.60 K/UL ABSOLUTE EOSINOPHILS (test code = 1040) 0.14 K/UL ABSOLUTE BASOPHILS (test code = 1069) 0.04 K/UL ABS IMMATURE GRANULOCYTES (test code = 1020) 0.04 K/UL ABS NUCLEATED RBCS (test code = 06644) 0.00 K/UL BLOOD TYPE AND RH (test code = 3901) O POSITIVE ANTIBODY SCREEN (test code = 3902) NEGATIVE RUBELLA ANTIBODY SCREEN (test code = 4600) 103 IU/ML RUBELLA IgG INTERP (test code = 59211) REACTIVE HEPATITIS B SURF AG (test code = 2739) NON-REACTIVE RPR (test code = 68390) NON-REACTIVE RPR TITER (test code = 3500) NOT INDIC. TITER HIV 1/2 4TH GEN, RFLX CONF (test code = 3514) NON-REACTIVE Jermaine VelasquezHEPATITIS C REFLEX [id number] 00:00:00* Test Item Value Reference Range Interpretation Comme nts HEPATITIS C ANTIBODY (test c ode = 4675) NON-REACTIVE Jermaine Matamoros AustinCT/NG, NAAT, [id number] 00:00:00* Test Item Value Reference Range Interpretation Comme nts CHLAMYDIA, NAAT, THINPREP (t est code = 62452) NEGATIVE GONORRHEA, NAAT, THINPREP (t est code = 89891) NEGATIVE PDFE (test code = PDFReport) PDF Jermaine Matamoros AustinDRUG ABUSE SCREEN 10 REFLEX [id number] 00:00:00* Test Item Value Reference Range Interpretation Comme nts AMPHETAMINES (test code = 3201) NEGATIVE BARBITURATES (test code = 3202) NEGATIVE BENZODIAZEPINES (test code = 3203) NEGATIVE CANNABINOIDS (THC) (test cod e = 3204) NEGATIVE COCAINE METABOLITES (test co de = 3205) NEGATIVE OPIATE METABOLITES (test cod e = 3209) NEGATIVE OXYCODONE (test code = 47578) NEGATIVE PHENCYCLIDINE (PCP) (test co de = 3210) NEGATIVE METHADONE (test code = 3207) NEGATIVE BUPRENORPHINE (test code = 31635) NEGATIVE SOURCE (test code = 712090) URINE Jermaine Matamoros AustinOBSTETRIC PANEL + [id number] 00:00:00* Test Item Value Reference Range Interpretation Comme nts WBC (test code = 1001) 10.9 K/UL RBC (test code = 1002) 4.81 M/UL HEMOGLOBIN (test code = 1003) 13.3 G/DL HEMATOCRIT (test code = 1004) 40.5 % MCV (test code = 1005) 84.2 fL MCH (test code = 1006) 27.7 PG MCHC (test code = 1007) 32.8 G/DL RDW (test code = 1038) 13.5 % NEUTROPHILS (test code = 1008) 65.1 % LYMPHOCYTES (test code = 1010) 27.3 % MONOCYTES (test code = 1011) 5.5 % EOSINOPHILS (test code = 1012) 1.3 % BASOPHILS (test code = 1013) 0.4 % IMMATURE GRANULOCYTES (test code = 1036) 0.4 % NUCLEATED RBCS (test code = 1065) 0.0 /100WBC'S PLATELET COUNT (test code = 1015) 268 K/UL ABSOLUTE NEUTROPHILS (test code = 1066) 7.11 K/UL ABSOLUTE LYMPHOCYTES (test code = 1067) 2.98 K/UL ABSOLUTE MONOCYTES (test code = 1068) 0.60 K/UL ABSOLUTE EOSINOPHILS (test code = 1040) 0.14 K/UL ABSOLUTE BASOPHILS (test code = 1069) 0.04 K/UL ABS IMMATURE GRANULOCYTES (test code = 1020) 0.04 K/UL ABS NUCLEATED RBCS (test code = 47541) 0.00 K/UL BLOOD TYPE AND RH (test code = 3901) O POSITIVE ANTIBODY SCREEN (test code = 3902) NEGATIVE RUBELLA ANTIBODY SCREEN (test code = 4600) 103 IU/ML RUBELLA IgG INTERP (test code = 14405) REACTIVE HEPATITIS B SURF AG (test code = 2739) NON-REACTIVE RPR (test code = 57175) NON-REACTIVE RPR TITER (test code = 3500) NOT INDIC. TITER HIV 1/2 4TH GEN, RFLX CONF (test code = 3514) NON-REACTIVE Jermaine VelasquezHEPATITIS C REFLEX [id number] 00:00:00* Test Item Value Reference Range Interpretation Comme nts HEPATITIS C ANTIBODY (test c ode = 4675) NON-REACTIVE Jermaine VelasquezCT/NG, NAAT, [id number] 00:00:00* Test Item Value Reference Range Interpretation Comme nts CHLAMYDIA, NAAT, THINPREP (t est code = 15539) NEGATIVE GONORRHEA, NAAT, THINPREP (t est code = 23595) NEGATIVE PDFE (test code = PDFReport) PDF Jermaine VelasquezDRUG ABUSE SCREEN 10 REFLEX [id number] 00:00:00* Test Item Value Reference Range Interpretation Comme nts AMPHETAMINES (test code = 3201) NEGATIVE BARBITURATES (test code = 3202) NEGATIVE BENZODIAZEPINES (test code = 3203) NEGATIVE CANNABINOIDS (THC) (test cod e = 3204) NEGATIVE COCAINE METABOLITES (test co de = 3205) NEGATIVE OPIATE METABOLITES (test cod e = 3209) NEGATIVE OXYCODONE (test code = 15297) NEGATIVE PHENCYCLIDINE (PCP) (test co de = 3210) NEGATIVE METHADONE (test code = 3207) NEGATIVE BUPRENORPHINE (test code = 38510) NEGATIVE SOURCE (test code = 081121) URINE Jermaine F [facility] SARS-COV-2 ANTIGEN (BINAX NOW)2023-12-14 19:00:00* Test Item Value Reference Range Interpretation Comme nts POCT SARS-COV-2 ANTIGEN (agustina t code = 47755-3) Positive Not Detected A On board controls acceptable with C Line (test code = 3574) Yes Lab Interpretation (test cod e = 17844-0) [facility] [id number] 21:33:00* Test Item Value Reference Range Interpretation Comme nts POCT PREG (test code = 1605) Negative On board controls acceptable with C Line (test code = 3574) Yes POCT PREG LOT # (test code = 3575) POCT PREG TEST DATE ( test code = 3576) [facility] [id number] 21:33:00* Test Item Value Reference Range Interpretation Comme nts POCT PREG (test code = 1605) Negative On board controls acceptable with C Line (test code = 3574) Yes POCT PREG LOT # (test code = 3575) POCT PREG TEST DATE ( test code = 3576) [facility] Notes Date/Time Note Provider Source [facility]25-[facility]-08 00:00:00 Jermaine Josie [facility]2025-01-31 00:00:00 [facility]
[2025-03-10 21:28] LABS: Absolute Lymphocytes (CBC) 1.5 K/uL (0.7-4.9); Hematocrit 39.8 % (36.0-45.0); Hemoglobin 13.2 g/dL (12.0-15.0); MCH 25.2 pg (27.0-35.0); MCHC 33.2 g/dL (32.0-36.0); MCV 75.9 fL (80-100); MPV 8.8 fL (7.6-11.3); Nucleated RBC Absolute Count 0.0 (0-0); Nucleated Red Blood Cells % 0.0 % (0-0); RBC Red Blood Cell Count 5.25 M/uL (3.86-4.86); White Blood Count 8.90 thou/uL (4.3-10.9)
--- NOTE | 2025-03-10 21:29 | RAD REPORT ---
EXAM:OB Limited . CLINICAL HISTORY: with abdominal pain. decreased movement TECHNIQUE: Limited OB ultrasound performed. FINDINGS: Single live cephalic fetus noted. heart rate 148 BPM. Estimated gestational age 34 weeks 1 day, PREET 04/20/2025. Placenta is anterior, grade 1. Amniotic fluid volume is normal measuring 12.3 cm IMPRESSION: No acute findings seen.
[2025-03-10 21:47] LABS: ALT/SGPT 46.0 U/L (13-56); AST/SGOT 26.0 U/L (15-37); Albumin 2.5 g/dL (3.4-5.0); Albumin/Globulin Ratio 0.6 (1.1-1.8); Alkaline Phosphatase 202.0 U/L (45-117); Anion Gap 12.3 mEq/L (5.0-15.0); BUN Blood Urea Nitrogen 3.0 mg/dL (7-18); Bilirubin Indirect, Calculated 0.3 mg/dL (0.2-0.8); Globulin 4.4 g/dL (2.3-3.5); Glucose Level 88.0 mg/dL (74-106); Potassium 3.3 mEq/L (3.5-5.1)
[2025-03-10] MEDS ORDERED: ACETAMINOPHEN 500 MG TAB ONE (22:54)
[2025-03-10] MEDS ORDERED: NA CHLORIDE 0.9% 1,000 ML ONE (22:54)
[2025-03-10 22:55] LABS: Urine Culture Reflex Order NOT NEEDED; Urine Microscopic Reflex YN ORDER UMIC
--- NOTE | 2025-03-10 23:11 | EDPHYS ---
Physician Documentation [facility] Name: Ebonie Stover Age: 24 yrs Sex: Female : 2000 Arrival Date: 03/10/2025 Time: 20:55 Bed 1 Private MD: ED Physician Jerald Bose HPI: 03/10 21:20 This 24 yrs old Female presents to ER via Wheelchair with complaints of EST 36 rn WKS GESTATION, DECREASED MOVEMENT, High Blood Pressure, Cough, Congestion. 21:20 Patient reports is 36 weeks , for the last several weeks has been followed rn closely by her OB doctor for high blood pressure. Patient reports her blood pressure has been 140s over 90s and has not been initiated on blood pressure medication and has not officially been diagnosed with preeclampsia. Her OB doctor is watching her weekly and open to get her to a full-term. Patient just saw her physician in the last day, states blood pressure was 140s over 90s and sent home without any change in treatment plan. Told to seek emergency care if blood pressure was greater than 160. Patient states took her blood pressure at home and was 160/100. Her blood pressure has come down since that 1 read without intervention. Denies abdominal pain. No rashes. No trouble breathing. No bleeding or leakage of fluid. Patient came in to get her blood pressure checked again. 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 - Infectious Disease History:: Denies. - Social history:: Smoking status: Patient denies any tobacco usage or history of. - Family history:: not pertinent. - Hospitalizations: : No recent hospitalization is reported. ROS: 21:20 Constitutional: Negative for fever, chills, and weight loss, Cardiovascular: Negative rn for chest pain, palpitations, and edema, Respiratory: Positive for cough for the last 2 weeks Abdomen/GI: Negative for abdominal pain, nausea, vomiting, diarrhea, and constipation, : Negative for injury, bleeding, discharge, and swelling, MS/Extremity: Negative for injury and deformity, Skin: Negative for injury, rash, and discoloration, Neuro: Negative for headache, weakness, numbness, tingling, and seizure, Exam: 21:20 Constitutional: This is a well developed, well nourished patient who is awake, alert, rn appears anxious Cardiovascular: Tachycardic, regular. No pulse deficits. Respiratory: Speaking full sentences, unlabored Abdomen/GI: Soft, nontender MS/ Extremity: Pulses equal, no cyanosis. Neuro: Awake and alert, GCS 15 Vital Signs: 21:20 BP 139 / 96; Pulse 116; Resp 16; Temp 97.6; Pulse Ox 98% ; Weight 90.72 kg; Height 4 vc1 ft. 9 in. ; Pain 0/10; 22:13 BP 132 / 96; Pulse 129; Resp 20; Temp 97; Pulse Ox 98% ; Pain 0/10; bm8 23:35 BP 132 / 94; Pulse 112; Resp 20; Pulse Ox 97% ; vc1 21:20 Body Mass Index 43.28 (90.72 kg, 144.78 cm) vc1 21:20 Pain Scale: Adult vc1 22:13 Pain Scale: Adult bm8 Denisa Coma Score: 22:13 Eye Response: spontaneous(4). Motor Response: obeys commands(6). Verbal Response: bm8 oriented(5). Total: 15. MDM: 20:59 Medical Screening Exam initiated rn 23:08 Differential diagnosis: Gestational hypertension, preeclampsia. Data reviewed: vital rn signs, nurses notes, lab test result(s), radiologic studies, ultrasound, and as a result, I will discharge patient. Counseling: I had a detailed discussion with the patient and/or guardian regarding the historical points, exam findings, and any diagnostic results supporting the discharge/admit diagnosis, lab results, the need for outpatient follow up, to return to the emergency department if symptoms worsen or persist or if there are any questions or concerns that arise at home. Special discussion: I discussed with the patient/guardian in detail that at this point there is no indication for admission to the hospital. It is understood, however, that if the symptoms persist or worsen the patient needs to return immediately for re-evaluation. Based on the history and exam findings, there is no indication for further emergent testing or inpatient evaluation. I discussed with the patient/guardian the need to see the OB Gyne specialist for further evaluation of the symptoms. ED course: Blood pressure has been stable 130s over 90s. Which is about or slightly under what she has been running the last few weeks and has been under the care of her OB doctor. No proteinuria. No abnormal labs to indicate help syndrome or preeclampsia. Will discharge with close follow-up with her OB doctor and given strict return precautions. Patient is 36 weeks , almost full-term, the goal is to get her to full term and ultrasound of baby is normal with good movement, heart tones and amniotic fluid.. 03/10 21:09 Order name: CBC with Diff; Complete Time: 21:40 rn 03/10 21:09 Order name: Basic Metabolic Panel; Complete Time: 21:48 rn 03/10 21:09 Order name: LFT's; Complete Time: 21:48 rn 03/10 21:09 Order name: LDH; Complete Time: 21:48 rn 03/10 21:09 Order name: UA Rfx Dereck Cult if indicated; Complete Time: 22:59 rn 03/10 20:59 Order name: US OB Limited; Complete Time: 21:30 rn 03/10 21:09 Order name: IV Start; Complete Time: 21:16 rn Administered Medications: 22:59 Drug: NS 0.9% IV 1000 ml IV at 1000 ml once; to be given as a bolus over 60 minutes bm8 Route: IV; Rate: 1000 ml; Site: left antecubital; 22:59 Drug: Acetaminophen PO 1000 mg PO once Route: PO; bm8 Disposition Summary: 03/10/25 23:10 Discharge Ordered Notes: Location: Home rn Problem: an ongoing problem rn Symptoms: have improved rn Condition: Stable rn Diagnosis - Essential (primary) hypertension rn - related conditions, unspecified, third trimester rn Followup: rn - With: Private Physician - When: 1 - 2 days - Reason: Recheck today's complaints, Re-evaluation by your physician Discharge Instructions: - Discharge Summary Sheet rn - Hypertension, Adult rn - Third Trimester of rn Forms: - Medication Reconciliation Form rn - Antibiotic healthcare administration intern - Prescription Opioid Use rn - Patient Portal Instructions rn - Leadership Thank You Letter rn Signatures: Dispatcher [employer] ISIS Bose, Jerald, MD MD rn Calcote, Elena, RN RN vc1 Homero Montes RN RN bm8
--- NOTE | 2025-03-10 23:11 | ER ---
Nurse's Notes [facility] Name: Ebonie Stover Age: 24 yrs Sex: Female : 2000 Arrival Date: 03/10/2025 Time: 20:55 Bed 1 Private MD: Diagnosis: Essential (primary) hypertension; related conditions, unspecified, third trimester Presentation: 03/10 21:12 Chief complaint: Patient states: Last few weeks have been being monitored for my blood vc1 pressure, been sick with a cough and congestion for a few weeks, haven't felt the baby move since around noon. Coronavirus screen: Client denies travel out of the [place] in the last 14 days. At this time, the client does not indicate any symptoms associated with coronavirus-19. Ebola Screen: Patient negative for fever greater than or equal to 101.5 degrees Fahrenheit, and additional compatible Ebola Virus Disease symptoms Patient denies exposure to infectious person. Patient denies travel to an Ebola-affected area in the 21 days before illness onset. No symptoms or risks identified at this time. Initial Sepsis Screen: Does the patient meet any 2 criteria? No. Patient's initial sepsis screen is negative. Does the patient have a suspected source of infection? No. Patient's initial sepsis screen is negative. Risk Assessment: Do you want to hurt yourself or someone else? Patient reports no desire to harm self or others. Onset of symptoms was March 10, 2025 at 12:00. 21:12 Method Of Arrival: Wheelchair vc1 21:12 Acuity: CARY 3 vc1 Triage Assessment: 21:18 General: Appears in no apparent distress. uncomfortable, Behavior is calm, cooperative, vc1 appropriate for age. Pain: Complains of pain in right upper quadrant and left upper quadrant Pain does not radiate. Pain currently is 0 out of 10 on a pain scale. at worst was 7 out of 10 on a pain scale. Is episodic, Aggravated by coughing. EENT: Nares with drainage noted. Neuro: Level of Consciousness is awake, alert, obeys commands, Oriented to person, place, time, situation, Appropriate for age. Cardiovascular: Heart tones S1 S2 present Capillary refill < 3 seconds Patient's skin is warm and dry. Respiratory: Reports cough that is persistent pain with cough Pain is 7 out of 10 on a pain scale. Airway is patent Respiratory effort is even, unlabored, Respiratory pattern is regular, symmetrical, Breath sounds are clear bilaterally. GI: Abdomen is round non-distended, 36 weeks . : No deficits noted. No signs and/or symptoms were reported regarding the genitourinary system. Derm: Skin is intact, is healthy with good turgor, Skin is dry, Skin is normal, Skin temperature is warm. Musculoskeletal: Circulation, motion, and sensation intact. Range of motion: intact in all extremities. 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 - Infectious Disease History:: Denies. - Social history:: Smoking status: Patient denies any tobacco usage or history of. - Family history:: not pertinent. - Hospitalizations: : No recent hospitalization is reported. Screenin:16 [facility] ED Fall Risk Assessment (Adult) History of falling in the last 3 months, vc1 including since admission No falls in past 3 months (0 pts) Confusion or Disorientation No (0 pts) Intoxicated or Sedated No (0 pts) Impaired Gait No (0 pts) Mobility Assist Device Used No (0 pt) Altered Elimination No (0 pt) Score/Fall Risk Level 0 - 2 = Low Risk Oriented to surroundings, Maintained a safe environment, Educated pt \T\ family on fall prevention, incl call for assistance when getting out of bed, Assessed \T\ reinforced patient's understanding of fall precautions, Hourly rounding (assess needs \T\ fall precautionary measures) done. Abuse screen: Denies threats or abuse. Nutritional screening: No deficits noted. Tuberculosis screening: No symptoms or risk factors identified. Assessment: 22:13 Reassessment: Patient appears in no apparent distress at this time. Patient and/or bm8 family updated on plan of care and expected duration. Pain level reassessed. Patient is alert, oriented x 3, equal unlabored respirations, skin warm/dry/pink. Patient denies pain at this time. Patient states feeling better. General: Appears in no apparent distress. comfortable, Behavior is calm, cooperative, appropriate for age. Cardiovascular: Denies chest pain. Respiratory: Airway is patent Respiratory effort is even, unlabored, Respiratory pattern is regular, symmetrical. Vital Signs: 21:20 BP 139 / 96; Pulse 116; Resp 16; Temp 97.6; Pulse Ox 98% ; Weight 90.72 kg; Height 4 vc1 ft. 9 in. ; Pain 0/10; 22:13 BP 132 / 96; Pulse 129; Resp 20; Temp 97; Pulse Ox 98% ; Pain 0/10; bm8 23:35 BP 132 / 94; Pulse 112; Resp 20; Pulse Ox 97% ; vc1 21:20 Body Mass Index 43.28 (90.72 kg, 144.78 cm) vc1 21:20 Pain Scale: Adult vc1 22:13 Pain Scale: Adult bm8 Vitals: 21:20 Heart Tones FHT 148. vc1 [place] Coma Score: 22:13 Eye Response: spontaneous(4). Motor Response: obeys commands(6). Verbal Response: bm8 oriented(5). Total: 15. ED Course: 20:58 Patient arrived in ED. [id number] 20:59 Jerald Bose MD is Attending Physician. rn 21:12 Elena Dale, MINA is Primary Nurse. vc1 21:15 Triage completed. vc1 21:16 Arm band placed on right wrist. vc1 21:16 Initial lab(s) drawn, by fl, sent to lab. Inserted saline lock: 20 gauge in left bm8 antecubital area, using aseptic technique. Blood collected. Flushed with 10 mL NS. 21:17 Patient has correct armband on for positive identification. Bed in low position. Call vc1 light in reach. Adult w/ patient. Provided Education on: Plan of care. Pulse ox on. NIBP on. 21:24 US OB Limited In Process Unspecified. EDMS 23:35 No provider procedures requiring assistance completed. IV discontinued, intact, vc1 bleeding controlled, No redness/swelling at site. Pressure dressing applied. Administered Medications: 22:59 Drug: NS 0.9% IV 1000 ml IV at 1000 ml once; to be given as a bolus over 60 minutes bm8 Route: IV; Rate: 1000 ml; Site: left antecubital; 22:59 Drug: Acetaminophen PO 1000 mg PO once Route: PO; bm8 Medication: 21:18 VIS not applicable for this client. vc1 Outcome: 23:10 Discharge ordered by . rn 23:35 Discharged to home via wheelchair, with significant other, vc1 23:35 Condition: stable 23:35 Discharge instructions given to patient, significant other, Instructed on discharge instructions, follow up and referral plans. Demonstrated understanding of instructions, follow-up care, 23:53 Patient left the ED. vc1 Signatures: Dispatcher [employer] EDMS Jerald Bose MD MD rn Jeffries, Jennifer jj6 Calcote, Vanessa RN RN vc1 Homero Montes RN RN bm8
[2025-03-11 03:57] VITALS: TEMP 97
[2025-03-11 03:59] VITALS: BP 132/94; O2SAT 97
== END 2025-03-10 23:53 | disposition home or self-care (01) ==
LOC: ER 20:55
DX: O16.3 Unspecified maternal hypertension, third trimester (principal); Z3A.36 36 weeks gestation of pregnancy
CPT/HCPCS: 85025; 81001; 80048; 36415; 83615; 80076; 76815; 99284; J7030